=== PATIENT | female | born 1940 | race Caucasian/White ===

== ENCOUNTER → 2020-08-02 | Outpatient (CLI) | payer OTHER ==
[~2020-08-02] MED LIST: ASPI-496 PO; LISI5TAB7 PO; MULT-642 PO
== END | disposition home or self-care (01) ==
LOC: CFH 08:59
PROVIDERS: ATTEND Family Medicine
DX: Z12.31 Encounter for screening mammogram for malignant neoplasm of breast (principal)
CPT/HCPCS: 77063; 77067